=== PATIENT | male | born 1975 | race Caucasian/White ===

== ENCOUNTER 2021-12-30 09:09 | Emergency (ER) | payer BC, MEDICAID ==
[~2021-12-30] VITALS: Ht 180.3 cm; Wt 104.0 kg
[2021-12-30 10:09] VITALS: BP 139/97
[2021-12-30] MEDS ORDERED: BACL10TA PO (10:34)
[2021-12-30] MEDS ORDERED: IBUP800T27 PO (10:34)
== END 2021-12-30 10:39 | disposition home or self-care (01) ==
LOC: ER 09:09
DX: M79.662 Pain in left lower leg (principal); M62.838 Other muscle spasm
CPT/HCPCS: 93971